=== PATIENT | male | born 1995 | race Hispanic/Latino ===

== ENCOUNTER 2020-08-30 18:31 | Emergency (ER) | payer MEDICAID, OTHER ==
[2020-08-30] MEDS ORDERED: L.E.T. GEL 3ML SYG TP ONE (20:31)
[2020-08-30] MEDS ORDERED: TETANUS/DIPHTHERIA TOXOID [ADULT] 0.5 ML VIAL IM ONE (21:42)
== END 2020-08-30 23:25 | disposition home or self-care (01) ==
LOC: EDH 18:31
DX: S01.81XA Laceration without foreign body of other part of head, initial encounter (principal); W18.39XA Other fall on same level, initial encounter; Y93.89 Activity, other specified; Y92.89 Other specified places as the place of occurrence of the external cause; Y99.8 Other external cause status
CPT/HCPCS: 12011; 70450; 90471; 90714